=== PATIENT | male | born 1970 | race Caucasian/White ===

== ENCOUNTER 2018-02-01 07:59 | Emergency (ER) | payer OTHER ==
[~2018-02-01] VITALS: Ht 182.9 cm; Wt 106.6 kg
[~2018-02-01 07:59] MED LIST: AMOX1TAB61 PO; ASPI325T8 PO; DOCU-109 PO; OXYC-323 PO
[2018-02-01] MEDS ORDERED: KETOROLAC 30 MG/ML VIAL. ONE (08:07)
[2018-02-01] MEDS ORDERED: ONDANSETRON PF 4 MG/2 ML VIAL. ONE (08:07)
[2018-02-01] MEDS ORDERED: IV NORMAL SALINE 1000ML BAG 1,000 ML IV ONE (08:15)
[2018-02-01] MEDS ORDERED: ONDANSETRON PF 4 MG/2 ML VIAL. IV ONE (08:15)
[2018-02-01 08:29] LABS: BASO # 0.1 x10^3/uL (0.0-0.2); BASO % 1 % (0-3); EOS # 0.2 x10^3/uL (0.0-0.7); EOS % 2 % (0-3); HEMOGLOBIN 16.6 g/dL (13.0-17.5); LYMPH # 3.2 x10^3/uL (1.0-4.8); LYMPH % 35 % (24-48); MEAN CORPUSCULAR HEMOGLOBIN 32 pg (25-35); MEAN CORPUSCULAR HGB CONC 35 g/dL (31-37); MEAN CORPUSCULAR VOLUME 92 fL (79-100); MONO # 0.8 x10^3/uL (0.0-1.1); MONO % 9 % (0-9); NEUT # 4.9 x10^3uL (1.8-7.7); NEUT % 53 % (31-73); PLATELET COUNT 353 x10^3/uL (140-400); RED BLOOD COUNT 5.12 x10^6/uL (4.30-5.70); RED CELL DISTRIBUTION WIDTH 12.3 % (11.5-14.5); WHITE BLOOD COUNT 9.3 x10^3/uL (4.0-11.0)
[2018-02-01 08:37] LABS: CALCIUM 9.1 mg/dL (8.5-10.1); CREATININE 1.1 mg/dL (0.7-1.3); GFR 71.8; POTASSIUM 3.6 mmol/L (3.5-5.1)
[2018-02-01 08:43] LABS: ALBUMIN/GLOBULIN RATIO 1.2 (1.0-1.7); TOTAL BILIRUBIN 0.4 mg/dL (0.2-1.0); TOTAL PROTEIN 7.3 g/dL (6.4-8.2)
[2018-02-01] MEDS ORDERED: KETOROLAC 30 MG/ML VIAL. IV ONE (09:00)
--- NOTE | 2018-02-01 09:02 | RAD ---
PQRS Compliance Statement: One or more of the following individualized dose reduction techniques were utilized for this examination: 1. Automated exposure control 2. Adjustment of the mA and/or kV according to patient size 3. Use of iterative reconstruction technique CT ABDOMEN PELVIS WO CONTRAST Clinical Indication: hx of kidney stones, hematuria, left sided pain today Comparison: CT abdomen and pelvis with contrast, January 14, 2016. Technique: Helical CT imaging of the abdomen and pelvis is performed without IV or oral contrast. Findings: Atelectasis or scarring in the posterior lower lobes bilaterally. The cardiac size is normal. The liver, gallbladder, spleen, pancreas, adrenal glands, and abdominal aorta caliber are normal. Circumaortic left renal vein. The right ureter is normal. 5 mm nonobstructing calculus lower pole of right kidney. No right hydronephrosis. Punctate calculus lower pole of left kidney. There is mild left hydroureteronephrosis secondary to a 5 mm calculus at the ureteropelvic junction, coronal image 66. The more distal left ureter is decompressed. Stomach unremarkable. Mild haziness of the central mesentery, increased from prior study. Finding is nonspecific. No dilated small bowel. Appendectomy. Bilateral inguinal hernia repairs. No colon wall thickening. No abdominal adenopathy or free fluid. The urinary bladder is not well distended accentuating the wall thickness. Bilateral inguinal hernia repairs. The prostate size is normal. No pelvic free fluid. Small Schmorl's nodes lower thoracic spine. Degenerative spondylosis of L5/S1. IMPRESSION: 1. Mild left obstructive uropathy secondary to a 5 mm calculus at the ureteropelvic junction. 2. Bilateral nonobstructing renal calculi. Electronically signed by: Chidi Betancur MD (02/01/2018 8:58 AM) [id number]
--- NOTE | 2018-02-01 09:21 | PHYS DOC ---
Past Medical History Past Medical History: Kidney Stone, Other Additional Past Medical Histor: gout Past Surgical History: Appendectomy, Other Additional Past Surgical Histo: hernia repair, deviated septum repair, lithotripsy Alcohol Use: Rarely Drug Use: None Adult General Chief Complaint Chief Complaint: FLANK PAIN HPI HPI Patient is a 48 year old [f__sex] who presents with [] Review of Systems Review of Systems Constitutional: Denies fever or chills [] Eyes: Denies change in visual acuity, redness, or eye pain [] HENT: Denies nasal congestion or sore throat [] Respiratory: Denies cough or shortness of breath [] Cardiovascular: No additional information not addressed in HPI [] GI: Denies abdominal pain, nausea, vomiting, bloody stools or diarrhea [] : Denies dysuria or hematuria [] Musculoskeletal: Denies back pain or joint pain [] Integument: Denies rash or skin lesions [] Neurologic: Denies headache, focal weakness or sensory changes [] Endocrine: Denies polyuria or polydipsia [] All other systems were reviewed and found to be within normal limits, except as documented in this note. Current Medications Current Medications Current Medications Medications (Trade) Dose Ordered Sig/Sweta Start Time Stop Time Status Last Admin Dose Admin Fentanyl Citrate (Fentanyl 2ml Vial) 75 mcg 1X ONCE 02/01/18 09:30 02/01/18 09:31 DC 02/01/18 09:36 75 MCG Ketorolac Tromethamine (Toradol 30mg Vial) 30 mg 1X ONCE 02/01/18 09:00 02/01/18 09:01 DC 02/01/18 08:49 30 MG Ondansetron HCl (Zofran) 4 mg STK-MED ONCE 02/01/18 08:07 02/01/18 08:08 DC Sodium Chloride 1,000 ml @ 1,000 mls/hr 1X ONCE 02/01/18 08:15 02/01/18 09:14 DC 02/01/18 08:45 1,000 MLS/HR Allergies Allergies Allergies Coded Allergies Type Severity Reaction Last Updated Verified codeine Allergy Mild Nausea and Vomiting 03/01/15 Yes meperidine Allergy Mild Nausea and Vomiting 03/01/15 Yes Physical Exam Physical Exam Constitutional: Well developed, well nourished, no acute distress, non-toxic appearance. [] HENT: Normocephalic, atraumatic, bilateral external ears normal, oropharynx moist, no oral exudates, nose normal. [] Eyes: PERRLA, EOMI, conjunctiva normal, no discharge. [] Neck: Normal range of motion, no tenderness, supple, no stridor. [] Cardiovascular:Heart rate regular rhythm, no murmur [] Lungs & Thorax: Bilateral breath sounds clear to auscultation [] Abdomen: Bowel sounds normal, soft, no tenderness, no masses, no pulsatile masses. [] Skin: Warm, dry, no erythema, no rash. [] Back: No tenderness, no CVA tenderness. [] Extremities: No tenderness, no cyanosis, no clubbing, ROM intact, no edema. [] Neurologic: Alert and oriented X 3, normal motor function, normal sensory function, no focal deficits noted. [] Psychologic: Affect normal, judgement normal, mood normal. [] Current Patient Data Vital Signs Vital Signs Date Time Temp Pulse Resp B/P (MAP) Pulse Ox O2 Delivery O2 Flow Rate FiO2 02/01/18 08:00 97.8 77 24 170/94 (119) 100 Room Air 97.8 Lab Values Laboratory Tests Test 02/01/18 08:09 02/01/18 09:20 White Blood Count 9.3 x10^3/uL (4.0-11.0) Red Blood Count 5.12 x10^6/uL (4.30-5.70) Hemoglobin 16.6 g/dL (13.0-17.5) Hematocrit 47.0 % (39.0-53.0) Mean Corpuscular Volume 92 fL (79-100) Mean Corpuscular Hemoglobin 32 pg (25-35) Mean Corpuscular Hemoglobin Concent 35 g/dL (31-37) Red Cell Distribution Width 12.3 % (11.5-14.5) Platelet Count 353 x10^3/uL (140-400) Neutrophils (%) (Auto) 53 % (31-73) Lymphocytes (%) (Auto) 35 % (24-48) Monocytes (%) (Auto) 9 % (0-9) Eosinophils (%) (Auto) 2 % (0-3) Basophils (%) (Auto) 1 % (0-3) Neutrophils # (Auto) 4.9 x10^3uL (1.8-7.7) Lymphocytes # (Auto) 3.2 x10^3/uL (1.0-4.8) Monocytes # (Auto) 0.8 x10^3/uL (0.0-1.1) Eosinophils # (Auto) 0.2 x10^3/uL (0.0-0.7) Basophils # (Auto) 0.1 x10^3/uL (0.0-0.2) Sodium Level 141 mmol/L (136-145) Potassium Level 3.6 mmol/L (3.5-5.1) Chloride Level 104 mmol/L (98-107) Carbon Dioxide Level 26 mmol/L (21-32) Anion Gap 11 (6-14) Blood Urea Nitrogen 11 mg/dL (8-26) Creatinine 1.1 mg/dL (0.7-1.3) Estimated GFR (Cockcroft-Gault) 71.8 BUN/Creatinine Ratio 10 (6-20) Glucose Level 116 mg/dL (70-99) H Calcium Level 9.1 mg/dL (8.5-10.1) Total Bilirubin 0.4 mg/dL (0.2-1.0) Aspartate Amino Transferase (AST) 28 U/L (15-37) Alanine Aminotransferase (ALT) 64 U/L (16-63) H Alkaline Phosphatase 88 U/L (46-116) Total Protein 7.3 g/dL (6.4-8.2) Albumin 4.0 g/dL (3.4-5.0) Albumin/Globulin Ratio 1.2 (1.0-1.7) Urine Collection Type Unknown Urine Color Yellow Urine Clarity Clear Urine pH 7.0 Urine Specific Seth 1.015 Urine Protein Negative mg/dL (NEG-TRACE) Urine Glucose (UA) Negative mg/dL (NEG) Urine Ketones (Stick) Negative mg/dL (NEG) Urine Blood Large (NEG) Urine Nitrite Negative (NEG) Urine Bilirubin Negative (NEG) Urine Urobilinogen Dipstick 0.2 mg/dL (0.2 mg/dL) Urine Leukocyte Esterase Negative (NEG) Urine RBC 20-40 /HPF (0-2) Urine WBC Occ /HPF (0-4) Urine Bacteria Few /HPF (0-FEW) Urine Mucus Marked /LPF Laboratory Tests 02/01/18 08:09 Laboratory Tests 02/01/18 08:09 EKG EKG [] Radiology/Procedures Radiology/Procedures []PATIENT: JUDIE NAPOLESACCOUNT: [id number]#: [id number] : 1970 LOCATION: ER AGE: 48 SEX: M EXAM STATUS: PRE ER ORD. PHYSICIAN: BETH YUAN APRN REASON: hx of kidney stones, hematuria, left sided pain PROCEDURE: CT ABDOMEN PELVIS WO CONTRAST PQRS Compliance Statement: One or more of the following individualized dose reduction techniques were utilized for this examination: 1. Automated exposure control 2. Adjustment of the mA and/or kV according to patient size 3. Use of iterative reconstruction technique CT ABDOMEN PELVIS WO CONTRAST Clinical Indication: hx of kidney stones, hematuria, left sided pain today Comparison: CT abdomen and pelvis with contrast, January 14, 2016. Technique: Helical CT imaging of the abdomen and pelvis is performed without IV or oral contrast. Findings: Atelectasis or scarring in the posterior lower lobes bilaterally. The cardiac size is normal. The liver, gallbladder, spleen, pancreas, adrenal glands, and abdominal aorta caliber are normal. Circumaortic left renal vein. The right ureter is normal. 5 mm nonobstructing calculus lower pole of right kidney. No right hydronephrosis. Punctate calculus lower pole of left kidney. There is mild left hydroureteronephrosis secondary to a 5 mm calculus at the ureteropelvic junction, coronal image 66. The more distal left ureter is decompressed. Stomach unremarkable. Mild haziness of the central mesentery, increased from prior study. Finding is nonspecific. No dilated small bowel. Appendectomy. Bilateral inguinal hernia repairs. No colon wall thickening. No abdominal adenopathy or free fluid. The urinary bladder is not well distended accentuating the wall thickness. Bilateral inguinal hernia repairs. The prostate size is normal. No pelvic free fluid. Small Schmorl's nodes lower thoracic spine. Degenerative spondylosis of L5/S1. IMPRESSION: 1. Mild left obstructive uropathy secondary to a 5 mm calculus at the ureteropelvic junction. 2. Bilateral nonobstructing renal calculi. Electronically signed by: Chidi Betancur MD (02/01/2018 8:58 AM) [id number] DICTATED and SIGNED BY: CHIDI BETANCUR MD DATE: 02/01/18 0849 Course & Med Decision Making Course & Med Decision Making Pertinent Labs and Imaging studies reviewed. (See chart for details) [] Onofre Disclaimer Onofre Disclaimer This electronic medical record was generated, in whole or in part, using a voice recognition dictation system. Departure Departure Impression: Primary Impression: Renal calculi Disposition: HOME, SELF-CARE Condition: STABLE Referrals: TRANG SANCHEZ MD (PCP) Patient Instructions: Kidney Stones Additional Instructions: Take the medications as directed. Follow-up with your urologist within 2 days for recheck. If worsening please return to the emergency department. Do not drive or operate heavy machinery while taking the pain medication. Screening your urine to make sure the renal calculi passed. Scripts Oxycodone/Apap 7.5-325 (PERCOCET 7.5-325 MG TABLET) 1 Each Tablet 1 TAB PO PRN Q6HRS PRN for PAIN, #30 TAB 0 Refills Prov: BETH YUAN APRN 02/01/18 Ibuprofen (IBUPROFEN) 800 Mg Tablet 800 MG PO PRN Q6HRS PRN for INFLAMMATION, #30 TAB Prov: BETH YUAN APRN 02/01/18 Tamsulosin Hcl (FLOMAX) 0.4 Mg Cap.er.24h 1 CAP PO DAILY, #30 CAP 11 Refills Prov: BETH YUAN APRN 02/01/18 BETH YUAN APRN Feb 01, 2018 09:21
[2018-02-01] MEDS ORDERED: fentaNYL PF VIAL 100 MCG/2 ML VIAL IV ONE (09:30)
[2018-02-01 09:40] LABS: BILIRUBIN,URINE NEGATIVE (NEG); CLARITY,URINE CLEAR; COLOR,URINE YELLOW; NITRITE,URINE NEGATIVE (NEG); PROTEIN,URINE NEGATIVE (NEG-TRACE); UROBILINOGEN,URINE 0.2 mg/dL (0.2 mg/dL)
[2018-02-01 09:55] LABS: RBC,URINE 20-40 /HPF (0-2)
[2018-02-01 09:56] LABS: BACTERIA,URINE FEW /HPF (0-FEW); WBC,URINE OCC /HPF (0-4)
[2018-02-01 10:00] VITALS: BP 157/94
[2018-02-01] MEDS ORDERED: IBUP-1060 PO (10:02)
[2018-02-01] MEDS ORDERED: TAMS0.4C97 PO (10:02)
[2018-02-01] MEDS ORDERED: OXYC-327 PO (10:02)
[2018-02-01] MEDS ORDERED: oxyCODONE/APAP 10/325 1 TAB TABLET PO ONE (10:45)
== END 2018-02-01 11:08 | disposition home or self-care (01) ==
LOC: ER 07:59
DX: N13.2 Hydronephrosis with renal and ureteral calculous obstruction (principal); Z90.89 Acquired absence of other organs; Z88.8 Allergy status to other drugs, medicaments and biological substances; Z88.5 Allergy status to narcotic agent
CPT/HCPCS: 36415; 74176; 80053; 81001; 85025; 96374; 96375; 99285; J1885; J2405; J3010; J7030